=== PATIENT | male | born 1995 | race African-American/Black ===

== ENCOUNTER 2019-11-03 16:01 | Emergency (ER) | payer MEDICAID ==
[~2019-11-03] VITALS: Ht 180.3 cm; Wt 64.4 kg
[2019-11-03 17:14] VITALS: BP 119/74
[2019-11-03] MEDS ORDERED: AZITHROMYCIN 250 MG TAB PO ONE (17:30)
[2019-11-03] MEDS ORDERED: cefTRIAXone SODIUM 250 MG VL IM ONE (17:30)
== END 2019-11-03 18:17 | disposition home or self-care (01) ==
LOC: ER 16:01
DX: Z20.2 Contact with and (suspected) exposure to infections with a predominantly sexual mode of transmission (principal); F17.210 Nicotine dependence, cigarettes, uncomplicated
CPT/HCPCS: 96372; 99283; J0696

== ENCOUNTER → 2020-01-14 | Emergency (ER) | payer MEDICAID ==
[~2020-01-14] VITALS: Ht 182.9 cm; Wt 63.5 kg
[2020-01-14 11:47] VITALS: BP 129/88
== END | disposition home or self-care (01) ==
LOC: ER 10:56
DX: R04.2 Hemoptysis (principal); J02.9 Acute pharyngitis, unspecified; F41.9 Anxiety disorder, unspecified; F17.210 Nicotine dependence, cigarettes, uncomplicated
CPT/HCPCS: 71046